=== PATIENT | female | born 1965 | race Caucasian/White ===

== ENCOUNTER → 2017-07-29 | Outpatient (CLI) | payer OTHER | LOC: FIMAGING 12:43 | DX: D17.23 Benign lipomatous neoplasm of skin and subcutaneous tissue of right leg (principal) ==

== ENCOUNTER → 2017-08-12 | Outpatient (CLI) | payer OTHER | LOC: FIMAGING 12:18 | PROVIDERS: ATTEND Obstetrics & Gynecology | DX: Z12.31 Encounter for screening mammogram for malignant neoplasm of breast (principal) | CPT/HCPCS: G0202 ==